=== PATIENT | male | born 1935 | race Caucasian/White ===

== ENCOUNTER 2016-08-19 06:32 | Day surgery (SDC) | payer MEDICARE, OTHER ==
[2016-08-16 10:04] LABS: HEMOGLOBIN 13.2 g/dL (13.5-17.5); MCH 30.6 pg (26.0-34.0); MCV 92.8 fL (80.0-100.0); RBC 4.31 10x6/uL (4.20-6.10); RDW 13.4 % (11.5-14.5)
[~2016-08-19] VITALS: Ht 167.6 cm; Wt 89.4 kg
[~2016-08-19 06:32] MED LIST: BAYER CHEWABLE81 MG PO; COREG 3.1253.125 MG PO; COZAAR100 MG PO; FERROUS SULFAT325 MG PO; IBUPROFEN800 MG PO; PRAVACHOL40 MG PO; VITAMIN B-1000 MCG/M IM; ZOLOFT100 MG PO
[2016-08-19 10:43] VITALS: BP 113/57; Ht 167.6 cm; Wt 89.4 kg
[2016-08-19] MEDS ORDERED: HYDROCODON-ACE1 EAC7 PO (14:40)
--- NOTE | 2016-08-19 16:54 | NUR ---
1635 ASSISSTED UP TO BR, VOIDS QS, STATES BELIEVES WILL TAKE A PAIN PILL NOW, NORCO 5MG PO GIVEN FOR PAIN RATED 4.
--- NOTE | 2016-08-20 08:02 | OP ---
PATIENT NAME: RENE WASHINGTON MEDICAL RECORD: [id number] :37 LOCATION:[facility] ADMISSION DATE: SURGEON: JUANITA SMITH MD DATE OF OPERATION: 08/19/2016 SURGEON: Juanita Smith MD. PREOPERATIVE DIAGNOSIS: Left inguinal hernia. POSTOPERATIVE DIAGNOSIS: Left inguinal hernia. PROCEDURE PERFORMED: Left inguinal herniorrhaphy with mesh. ANESTHESIA: General. COMPLICATIONS: None. SPECIMENS: Hernia sac and cord lipoma. ESTIMATED BLOOD LOSS: 50 cc. COMPLICATIONS: None. Case was clean. OPERATIVE REPORT: After consent was obtained, the patient was taken to the operating room and placed in the supine position on the operating table. Next, general anesthesia was given via endotracheal intubation after a timeout was taken to confirm the correct patient and procedure. The left groin was prepped and draped in typical sterile fashion. Ioban dressing was placed. Next, local nerve block was performed, 2 fingerbreadths medial and 1 fingerbreadth inferior to the ASIS. External landmarks were identified. Inguinal ligament was identified. Local anesthetic was administered. A transverse incision was made with a 15 blade scalpel. Dissection continued to the level of the Serafin's fascia using electrocautery. Serafin's fascia was incised and dissection continued to the level of the external oblique fascia. Self-retaining retractors were placed. Local anesthetic was injected just below the external oblique fascia. The external oblique fascia was then opened with a 15 blade scalpel. Initially, using the Metzenbaum scissors, it was opened medially through the external inguinal ring and it was opened laterally towards the ASIS. The external oblique fascia was grabbed with hemostat. It was bluntly dissected. A second self-retaining retractor was then placed. The spermatic cord and all the contents were dissected off the pubic tubercle. A [place] dressing was placed. The hernia sac and cord lipoma were dissected off the vessels ____ were all identified. The hernia sac was excised. It was closed with a 2-0 Vicryl suture. There was a large indirect inguinal component. Once the sac was opened, all abdominal contents were reduced. The hernia sac was tied off at the base and sutured with a 2-0 suture. Next, a Afshan repair was performed. A Bard 3DMax mesh was cut to size. It was secured with interrupted 2-0 Prolene suture at the pubic tubercle and along the inguinal ligament, as well as the conjoined tendon. A keyhole incision was made in the mesh. The internal ring was loosely recreated. The external oblique fascia was closed with 0 Vicryl suture. Serafin's fascia was closed with 3-0 Vicryl suture. Skin was closed with 4-0 Monocryl, Mastisol and Steri-Strips. At the end of the case, all needle and instruments counts were correct. No complications OPERATIVE REPORT [id number] RENE WASHINGTON occurred. The patient was extubated and transferred to the PACU in stable condition. TRANSINT:[id number] Voice Confirmation ID: [id number] DOCUMENT ID: [id number] JUANITA SMITH MD at 0802 CC: [id number] DICTATION DATE: 08/19/16 1446 ADJUNCT WRITING INSTRUCTOR: 08/19/16 2224 [facility] 08/19/16 [id number] [place] [address]
== END 2016-08-19 17:05 | disposition home or self-care (01) ==
LOC: D.OPS 06:32 → D.PAN 11:30 → D.OPS 11:30
PROVIDERS: Anesthesiology
DX: K40.90 Unilateral inguinal hernia, without obstruction or gangrene, not specified as recurrent (principal); D17.6 Benign lipomatous neoplasm of spermatic cord

== ENCOUNTER → 2017-01-13 10:38 | Outpatient (CLI) | payer MEDICARE, OTHER ==
[2016-08-19 10:43] VITALS: BMI 31.8
[~2017-01-13 10:38] MED LIST changes: +HYDROCODON-ACE1 EAC7 PO
== END | disposition home or self-care (01) ==
LOC: D.LAB 10:38
DX: N40.0 Benign prostatic hyperplasia without lower urinary tract symptoms (principal)

== ENCOUNTER 2017-10-28 15:31 | Inpatient (IN) | payer MEDICARE, OTHER ==
[~2017-10-28] VITALS: Ht 167.6 cm; Wt 87.3 kg
[2017-10-28 16:19] LABS: BASOPHILS 0.4 % (0-2); EOSINOPHILS 0.9 % (0-7); HEMATOCRIT 37.5 % (42.0-54.0); HEMOGLOBIN 12.6 g/dL (13.5-17.5); IMMATURE GRANULOCYTES 0.1 % (0-5); LYMPHOCYTES 3.4 % (15-50); MCH 30.8 pg (26.0-34.0); MCHC 33.6 g/dL (31.0-37.0); MCV 91.7 fL (80.0-100.0); MEAN PLATELET VOLUME 8.8 fL (7.4-10.4); MONOCYTES 1.6 % (2-11); NEUTROPHILS 93.6 % (40-80); RBC 4.09 10x6/uL (4.20-6.10); RDW 12.8 % (11.5-14.5); WBC 7.4 10x3/uL (4.8-10.8)
[2017-10-28 16:21] LABS: PLATELET COUNT 134 10x3/uL (130-400)
[2017-10-28 16:34] LABS: ANION GAP 11.2 mmol/L (8-16); CALCIUM 8.6 mg/dL (8.5-10.1); CARBON DIOXIDE 25.9 mmol/L (21.0-32.0); CREATININE - SERUM 1.8 mg/dL (0.6-1.3); POTASSIUM - SERUM 4.1 mmol/L (3.5-5.1)
[2017-10-28 17:52] LABS: APPEARANCE TURBID (CLEAR); BILIRUBIN NEGATIVE (NEGATIVE); COLOR RED (YELLOW); GLUCOSE NEGATIVE (NEGATIVE); KETONE NEGATIVE (NEGATIVE); NITRITE NEGATIVE (NEGATIVE); PROTEIN 2+ mg/dL (NEGATIVE); SPECIFIC GRAVITY 1.015 (1.005-1.020); UROBILINOGEN NORMAL (NORMAL)
[2017-10-28 17:53] LABS: BACTERIA FEW /hpf (NONE SEEN); RED CELLS - URINE >50 /hpf (0-5)
[2017-10-29] VITALS (8 sets, daily range): BP systolic 103–156; BP diastolic 44–83; Ht 167.6 cm; Wt 87.3 kg
[2017-10-30] VITALS (14 sets, daily range): BP systolic 84–156; BP diastolic 48–83
[2017-10-30 04:12] LABS: BASOPHILS 0.7 % (0-2); EOSINOPHILS 2.7 % (0-7); HEMATOCRIT 35.6 % (42.0-54.0); HEMOGLOBIN 11.8 g/dL (13.5-17.5); IMMATURE GRANULOCYTES 0.1 % (0-5); LYMPHOCYTES 9.9 % (15-50); MCH 30.5 pg (26.0-34.0); MCHC 33.1 g/dL (31.0-37.0); MEAN PLATELET VOLUME 8.6 fL (7.4-10.4); MONOCYTES 10.3 % (2-11); NEUTROPHILS 76.3 % (40-80); PLATELET COUNT 108 10x3/uL (130-400); RBC 3.87 10x6/uL (4.20-6.10); RDW 12.9 % (11.5-14.5); WBC 6.7 10x3/uL (4.8-10.8)
[2017-10-30 04:26] LABS: ANION GAP 10.6 mmol/L (8-16); CALCIUM 8.6 mg/dL (8.5-10.1); CARBON DIOXIDE 23.6 mmol/L (21.0-32.0); CREATININE - SERUM 1.6 mg/dL (0.6-1.3); POTASSIUM - SERUM 4.2 mmol/L (3.5-5.1)
[2017-10-31 01:00] VITALS: BP 151/71
[2017-10-31 03:51] LABS: BASOPHILS 0.8 % (0-2); EOSINOPHILS 6.1 % (0-7); HEMATOCRIT 34.5 % (42.0-54.0); HEMOGLOBIN 11.5 g/dL (13.5-17.5); IMMATURE GRANULOCYTES 0.2 % (0-5); LYMPHOCYTES 15.4 % (15-50); MCH 30.2 pg (26.0-34.0); MCHC 33.3 g/dL (31.0-37.0); MCV 90.6 fL (80.0-100.0); MEAN PLATELET VOLUME 8.8 fL (7.4-10.4); MONOCYTES 12.7 % (2-11); NEUTROPHILS 64.8 % (40-80); PLATELET COUNT 106 10x3/uL (130-400); RBC 3.81 10x6/uL (4.20-6.10); RDW 12.7 % (11.5-14.5); WBC 6.5 10x3/uL (4.8-10.8)
[2017-10-31 04:00] VITALS: BP 135/70
[2017-10-31 04:11] LABS: ANION GAP 11.7 mmol/L (8-16); CALCIUM 8.6 mg/dL (8.5-10.1); CARBON DIOXIDE 25.4 mmol/L (21.0-32.0); CREATININE - SERUM 1.4 mg/dL (0.6-1.3); POTASSIUM - SERUM 4.1 mmol/L (3.5-5.1)
[2017-10-31 08:39] VITALS: BP 91/58
[2017-10-31 12:17] VITALS: BP 106/51
[2017-10-31] MEDS ORDERED: DOXYCYCLINE HY100 M2 PO (13:27)
== END 2017-10-31 15:43 | disposition home or self-care (01) | DRG 315 ==
LOC: D.ER 15:31 → D.EDHOLD 20:53 → D.ICU 20:53 → D.M2 20:53 → D.ICU 10-29 17:15 → D.M2 10-30 13:09
PROVIDERS: Family Medicine
DX: I95.9 Hypotension, unspecified (principal); N39.0 Urinary tract infection, site not specified; I10 Essential (primary) hypertension; R50.82 Postprocedural fever

== ENCOUNTER → 2018-03-25 16:33 | Outpatient (CLI) | payer MEDICARE, OTHER ==
[2017-10-29 23:57] VITALS: BMI 31.2
[~2018-03-25 16:33] MED LIST changes: +DOXYCYCLINE HY100 M2 PO
== END | disposition home or self-care (01) ==
LOC: D.LAB 16:33
DX: R97.20 Elevated prostate specific antigen [PSA] (principal)

== ENCOUNTER → 2018-07-13 18:26 | Outpatient (CLI) | payer MEDICARE, OTHER ==
[2017-10-29 23:57] VITALS: BMI 31.2
== END | disposition home or self-care (01) ==
LOC: D.LABREF 18:26
DX: R31.9 Hematuria, unspecified (principal); R82.5 Elevated urine levels of drugs, medicaments and biological substances; D72.829 Elevated white blood cell count, unspecified

== ENCOUNTER → 2018-07-31 18:15 | Outpatient (CLI) | payer MEDICARE, OTHER ==
[2017-10-29 23:57] VITALS: BMI 31.2
[~2018-07-31 18:15] MED LIST changes: +FLOMAX0.4 MG PO; +MYRBETRIQ50 MG PO; +PROSCAR5 MG PO
== END | disposition home or self-care (01) ==
LOC: D.LABREF 18:15
DX: R31.9 Hematuria, unspecified (principal)

== ENCOUNTER 2018-08-20 05:13 | Day surgery (SDC) | payer MEDICARE, OTHER ==
[~2018-08-20] VITALS: Ht 167.6 cm; Wt 93.0 kg
[~2018-08-20 05:13] MED LIST changes: -FLOMAX0.4 MG PO; -MYRBETRIQ50 MG PO; -PROSCAR5 MG PO
[2018-08-20 05:53] LABS: BASOPHILS 1.4 % (0-2); EOSINOPHILS 6.2 % (0-7); HEMATOCRIT 42.3 % (42.0-54.0); HEMOGLOBIN 14.2 g/dL (13.5-17.5); LYMPHOCYTES 20.4 % (15-50); MCH 29.8 pg (26.0-34.0); MCHC 33.6 g/dL (31.0-37.0); MCV 88.9 fL (80.0-100.0); MEAN PLATELET VOLUME 9.3 fL (7.4-10.4); MONOCYTES 10.5 % (2-11); NEUTROPHILS 61.5 % (40-80); RBC 4.76 10x6/uL (4.20-6.10); RDW 13.5 % (11.5-14.5); WBC 7.9 10x3/uL (4.8-10.8)
[2018-08-20 05:57] LABS: ANION GAP 14.8 mmol/L (8-16); CALCIUM 9.3 mg/dL (8.5-10.1); CARBON DIOXIDE 25.4 mmol/L (21.0-32.0); POTASSIUM - SERUM 4.2 mmol/L (3.5-5.1)
[2018-08-20 06:13] LABS: PLATELET COUNT 150 10x3/uL (130-400)
[2018-08-20] MEDS ORDERED: FLOMAX0.4 MG PO (06:25)
[2018-08-20] MEDS ORDERED: MYRBETRIQ50 MG PO (06:26)
[2018-08-20] MEDS ORDERED: FERROUS SULFAT325 MG PO (06:27)
[2018-08-20 06:29] VITALS: BP 132/67; Ht 167.6 cm; Wt 93.0 kg
[2018-08-20] MEDS ORDERED: PROSCAR5 MG PO (06:29)
--- NOTE | 2018-08-20 08:26 | NUR ---
REC'D FROM SURGERY. FAMILY AT BEDSIDE. ICE WATER BROUGHT TO PT.
--- NOTE | 2018-08-20 08:40 | NUR ---
FL TRAY BROUGHT TO PT.
--- NOTE | 2018-08-20 08:53 | OP ---
PATIENT NAME: PRABHU WASHINGTON MEDICAL RECORD: [id number] :37 LOCATION:D[facility] ADMISSION DATE: SURGEON: PRABHU DELGADO MD DATE OF OPERATION: 08/20/2018 SURGEON: Prabhu Delgado MD ANESTHESIA: TIVA by Vasyl Wasserman CRNA. DIAGNOSIS: Microscopic hematuria, elevated PSA of 3.09 on 03/19/2018. PROCEDURE: Cystoscopy, transrectal ultrasound of the prostate, and prostate biopsy. SPECIMENS: Prostate biopsy. FINDINGS: On cystoscopy, bilateral lateral lobe enlargement with no median lobe of the prostate. Single ureteral orifices bilaterally with no bladder tumors. On transrectal ultrasound 42.5 gram prostate with intraprostatic stones. No hypoechoic areas. BLOOD LOSS: None. CLINICAL HISTORY: This is an 83-year-old male with urinary urgency and episodes of urinary tract infections. He continues to have microscopic hematuria. Urine was sent for cytology and this was benign. His PSA in 12/2016 was 4.9. Repeat PSA in 02/2018 was 3.0. He has an IPSS score of 21 and quality of life score of 50. On digital rectal examination, the prostate was approximately 50 grams in size with no nodules palpable. He comes today to have cystoscopy for the microscopic hematuria as well as a prostate biopsy. The NCCN 2016 guidelines state that a PSA greater than 3 is an indication for a prostate biopsy. If the biopsy proved to be benign, he would like to proceed with an UroLift procedure. HE IS ALLERGIC TO LISINOPRIL AND CRESTOR. We gave him Ancef sewer connector to the OR. DESCRIPTION OF PROCEDURE: The patient was given IV sedation. He was then placed into dorsal lithotomy position and prepped and draped. A 17-Latvian cystoscope with 30-degree lens was used for visualization. Findings are as outlined above. After cystoscopy, we drained the bladder through the cystoscope sheath and then removed the scope. The transrectal ultrasound probe was then introduced and prostate size measurements were obtained. A 42.5 grams that is what we obtained. We saw intraprostatic stones and no hypoechoic areas. Sextant biopsies were obtained with at least 3 cores from each sextant. Once all specimens were obtained, the procedure was terminated. I will see the patient in followup next week to review the pathology with him. TRANSINT:[id number] Voice Confirmation ID: [id number] DOCUMENT ID: [id number] OPERATIVE REPORT [id number] PRABHU WASHINGTON ROBERT S MD at 0853 CC: [id number] DICTATION DATE: 08/20/18831 CHIMNEY MECHANIC: 08/20/18 0844 [address] [place] [id number] [place] [id number]
--- NOTE | 2018-08-20 09:00 | NUR ---
TOLERATED FL TRAY. FAMILY AT BEDSIDE.
--- NOTE | 2018-08-20 09:30 | NUR ---
AMBULATED TO BATHROOM AND VOIDED WITHOUT DIFFICULTY. IV DC'D WITH CATHETER INTACT.
--- NOTE | 2018-08-20 09:45 | NUR ---
WRITTEN AND VERBAL DC INST. GIVEN TO PT. VERBALIZED UNDERSTANDING.
--- NOTE | 2018-08-20 09:55 | NUR ---
DC'D HOME WITH FAMILY VIA PRIVATE VEHICLE. TAKEN TO VEHICLE VIA WC. STABLE AT TIME OF DC.
== END 2018-08-20 09:55 | disposition home or self-care (01) ==
LOC: D.OPS 05:13 → D.PAN 11:30 → D.OPS 12:30 → D.PAN 12:30
PROVIDERS: Anesthesiology
DX: N41.1 Chronic prostatitis (principal); R39.15 Urgency of urination; R31.29 Other microscopic hematuria; Z01.812 Encounter for preprocedural laboratory examination

== ENCOUNTER 2018-08-27 10:23 | Day surgery (SDC) | payer MEDICARE, OTHER ==
[~2018-08-27] VITALS: Ht 167.6 cm; Wt 93.0 kg
[~2018-08-27 10:23] MED LIST changes: +FLOMAX0.4 MG PO; +MYRBETRIQ50 MG PO; +PROSCAR5 MG PO
[2018-08-27 15:48] VITALS: BP 128/65; Ht 167.6 cm; Wt 93.0 kg
--- NOTE | 2018-08-28 09:02 | OP ---
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 PSA was 3.09 in February 2018. Transrectal ultrasound showed 42.5 mL prostate size. IPSS is 21 and quality of life score is 5. PROCEDURE: UroLift times 4 Implants. FINDINGS: Bilateral lateral lobe obstruction with no median lobe. Single ureteral orifice seen bilaterally. There is a trabeculated bladder with no bladder tumors. BLOOD LOSS: Minimal. CLINICAL HISTORY: This is an 83-year-old male who has issues with urinary urgency and urge incontinence. I recently treated him for urinary tract infection with Klebsiella. He also had a urinary tract infection in October of 2017, for which he was hospitalized. His PSA in February of 2018 was 3.09. Previously, it had been as high as 4.9 on 01/03/2017. He had a transrectal ultrasound and prostate biopsy. The prostate pathology was benign. He has quite high IPSS scores and the fact that he is getting recurrent urinary tract infections is already an indication for surgery. He comes today to have the UroLift procedure done. HE IS ALLERGIC TO CRESTOR AND LISINOPRIL. He was given Ancef on-call to the OR. DESCRIPTION OF PROCEDURE: The patient was given IV sedation. He was then placed into lithotomy position and prepped and draped. The Olympus scope was placed. He has large obstructive bilateral lateral lobes. There was no significant median lobe at all. At the bladder neck level, we moved distally 1.5 cm and here, on each side, we implanted one UroLift device at the anterolateral lobes. Then, we moved to the verumontanum level and then again, on each side, we placed one UroLift device at the anterolateral lobes, for a total of 4 implants in the prostate. The prostatic urethra in the anterior portion was now widely open. The bladder was emptied through the cystoscope and the patient was brought to the preoperative holding area. I will see him in followup in one month's time. TRANSINT:[id number] Voice Confirmation ID: [id number] DOCUMENT ID: [id number] OPERATIVE REPORT [id number] PRABHU WASHINGTON ROBERT S MD at 0902 CC: [id number] DICTATION DATE: 08/27/181654 PRECISION INSTRUMENT MAKER: 08/27/182127 [facility] 08/27/18 [id number] [place] [id number]
== END 2018-08-27 18:00 | disposition home or self-care (01) ==
LOC: D.OPS 10:23 → D.PAN 14:30 → D.OPS 18:00
PROVIDERS: ATTEND Urology
DX: N40.1 Benign prostatic hyperplasia with lower urinary tract symptoms (principal); N39.41 Urge incontinence; N13.8 Other obstructive and reflux uropathy; R39.15 Urgency of urination; N32.89 Other specified disorders of bladder; Z01.812 Encounter for preprocedural laboratory examination

== ENCOUNTER 2020-01-12 12:30 | Inpatient (IN) | payer MEDICARE, OTHER ==
[~2020-01-12] VITALS: Ht 152.4 cm; Wt 90.9 kg
[2020-01-12] VITALS (8 sets, daily range): BP systolic 93–119; BP diastolic 56–76
[2020-01-12 13:04] LABS: APTT 30.2 SECONDS (22.8-39.4); INR 0.98 (0.85-1.17)
[2020-01-12 13:06] LABS: CALC OSMOLALITY 280 mosm/kg (275-300); CALCIUM 9.6 mg/dL (8.5-10.1); CARBON DIOXIDE 27.6 mmol/L (21.0-32.0); CHLORIDE - SERUM 104 mmol/L (98-107); CREATININE - SERUM 1.9 mg/dL (0.6-1.3); GLUCOSE 92 mg/dL (74-106); POTASSIUM - SERUM 4.1 mmol/L (3.5-5.1); SODIUM 139 mmol/L (136-145); UREA NITROGEN 21 mg/dL (7-18); eGFR NON AFRICAN AMERICAN 36 mL/min (90-120)
[2020-01-12 13:19] LABS: ALBUMIN 3.9 g/dL (3.4-5.0); ALKALINE PHOSPHATASE 144 U/L (30-120); ALT (SGPT) 22 U/L (10-68); BILIRUBIN - TOTAL 1.15 mg/dL (0.2-1.3); CKMB 1.7 U/L (0.0-3.6); CREATINE KINASE 152 UL (21-232)
[2020-01-12 13:20] LABS: TROPONIN-I < 0.017 ng/mL (0.000-0.060)
[2020-01-12 13:23] LABS: HEMATOCRIT 45.8 % (42.0-54.0); HEMOGLOBIN 14.9 g/dL (13.5-17.5); MCH 29.6 pg (26.0-34.0); MCHC 32.5 g/dL (31.0-37.0); MCV 90.9 fL (80.0-100.0); MEAN PLATELET VOLUME 9.2 fL (7.4-10.4); NEUTROPHILS 77.2 % (40-80); RBC 5.04 10x6/uL (4.20-6.10); RDW 12.6 % (11.5-14.5); WBC 12.9 10x3/uL (4.8-10.8)
[2020-01-12 13:25] LABS: PLATELET COUNT 207 10x3/uL (130-400)
[2020-01-12] MEDS ORDERED: AUGMENTIN 875-11 TAB PO (13:40)
[2020-01-12] MEDS ORDERED: ZITHROMAX TRI-500 MG PO ×2 (13:42→13:43)
--- NOTE | 2020-01-12 14:20 | NUR ---
IN ROOM TO DISCHARGE PATIENT, HR NOTED AT 92 AND AFTER ATTACHING BP CUFF THE PATIENT SUDDENLY BECAME TACHYCARDIC AT A RATE OF 118. MONITORED THE PATIENT FOR SEVERAL MINUTES AND THE TACHYCARDIA WAS SUSTAINED. THE PT'S BP WAS 109/76. ER PROVIDER NOTIFIED OF CHANGE.
[2020-01-12 17:59] LABS: CKMB 1.2 U/L (0.0-3.6); CREATINE KINASE 139 UL (21-232)
[2020-01-12 18:00] LABS: TROPONIN-I < 0.017 ng/mL (0.000-0.060)
[2020-01-12] MEDS ORDERED: BAYER CHEWABLE81 MG PO (20:38)
[2020-01-12] MEDS ORDERED: VITAMIN B-121000 MCG PO (20:40)
[2020-01-12] MEDS ORDERED: VITAMIN D1000 UNIT PO (20:41)
--- NOTE | 2020-01-12 20:46 | NUR ---
PAGED SLURRY CONTROL TENDER FOR [facility], REGARDING HOME MEDICATIONS.
[2020-01-12 23:25] LABS: CKMB 1.3 U/L (0.0-3.6); CREATINE KINASE 144 UL (21-232); TROPONIN-I < 0.017 ng/mL (0.000-0.060)
[2020-01-13] VITALS: BP 104/51
[2020-01-13 00:26] VITALS: Ht 152.4 cm; Wt 90.9 kg
[2020-01-13] MEDS ORDERED: CEFUROXIME500 MG PO (08:32)
--- NOTE | 2020-01-13 10:06 | NUR ---
PT DISCHARGED HOME VIA WHEELCHAIR WITH FAMILY. PIV REMOVED WITH CATHETER TIP FULLY INTACT. PT SIGNED PROPER DISCHARGE INSTRUCTIONS AND REMOVED ALL VALUABLES FROM THE ROOM. TELEMETRY REMOVED AND RETURNED.
--- NOTE | 2020-01-13 19:58 | MORECARE ---
CASE MANAGEMENT DISCHARGE SUMMARY PATIENT: RENE WASHINGTON UNIT: [id number] ADM DATE: 01/12/20 AGE: 84 : 37 SEX: M ROOM/BED: D.0681 AUTHOR: EITAN ALEGRE PHYSICIAN: REFERRING PHYSICIAN: LEONEL BEE MD DATE OF SERVICE: 01/13/20 Discharge Plan Patient Name: RENE WASHINGTON Facility: [facility]:[place] : 1935 Planned Disposition: Home Anticipated Discharge Date: Discharge Date: 01/13/2020 Expected LOS: Initial Reviewer: [email or web address] Initial Review Date: 01/12/2020 Generated: 01/13/20 8:58 pm Comments DCP- Discharge Planning Updated by [email or web address]: Zahida Lima on 01/13/20 6:[address] CM met with patient to complete initial dc planning assessment. CM educated patient on the CM role and verbal consent given by patient to complete assessment. CM verified patient's address, phone number, and emergency contact phone numbers. Patient lives at home with his . 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 At discharge patient plans to return home and feels this is a safe discharge. CM discussed availability of home health, rehab services, and medical equipment. Patient denied known discharge needs at this time. Transportation provider at discharge will be a family friend . CM will continue to follow and will assist as needed with dc plans/needs. DC IMM delivered, explained, signed by the patient, and placed in chart. Signed form also left with the patient. Declination signed for home health or IP rehab. Zahida Lima DCPIA - Discharge Planning Initial Assessment Updated by [email or web address]: Zahida Lima on 01/13/20 7:55 pm * Is the patient Alert and Oriented? Yes * How many steps to enter\exit or inside your home? 0/0 * PCP CRISTAL * Pharmacy [facility] * Preadmission Environment Home with Family * ADLs Independent * Equipment None * Community resources currently utilized None * Additional services required to return to the preadmission environment? No * Can the patient safely return to the preadmission environment? Yes * Has this patient been hospitalized within the prior 30 days at any hospital? No Coverage Notice Reviewer: [email or web address] - Zahida Lima Notice Issued Date-Time: 01/13/2020 8:00 Notice Type: Patient Choice Letter Notice Delivered To: Patient Relationship to Patient: Director Of Laboratory Operations Name: Delivery Method: HAND - Hand Delivered Melani Days: Prior Verbal Notification: Recipient Understood Notice: Yes Recipient Signature: Yes Med Rec Note Co-signed by Attending: Coverage Notice Comment: DECLINATION SIGNED FOR HH/REHAB Reviewer: [email or web address] Riccardo Lima Notice Issued Date-Time: 01/13/2020 8:00 Notice Type: IM Discharge Notice Notice Delivered To: Patient Relationship to Patient: Director Of Laboratory Operations Name: Delivery Method: HAND - Hand Delivered Melani Days: Prior Verbal Notification: Recipient Understood Notice: Yes Recipient Signature: Yes Med Rec Note Co-signed by Attending: Coverage Notice Comment: DCIMM DELIVERED Patient Name: RENE WASHINGTON Page [id number] at 1955 All edits/amendments must be made on the electronic document DICTATION DATE: 01/13/201957 REGULATORY CONSULTANT: AVANI 01/13/201957 RPT#: [id number] MD DATE:01/13/20 STATUS: DIS IN [facility] [address] [place] [address] END OF REPORT
== END 2020-01-13 10:14 | disposition home or self-care (01) | DRG 206 ==
LOC: D.ER 12:30 → D.M2 18:05 → OBSVTIME 18:05 → D.M2 18:07
PROVIDERS: Emergency Medicine; ADMIT Family Medicine; ATTEND Family Medicine
DX: J98.11 Atelectasis (principal); I10 Essential (primary) hypertension; R00.0 Tachycardia, unspecified; I95.9 Hypotension, unspecified; R07.81 Pleurodynia